=== PATIENT | female | born 1980 | race Two or more races ===

== ENCOUNTER → 2024-05-16 | Outpatient (CLI) | payer OTHER, SELFPAY ==
--- NOTE | 2024-05-16 15:17 | XR_ITS ---
Examination: Wrist, left 3 views Technique: Wrist AP, oblique, lateral 3 views Date and time of exam: May 16, 2024 1520 hours INDICATIONS: Injury to the wrist today, wrist pain FINDINGS: No acute fracture No dislocation No foreign body IMPRESSION: No acute fracture
== END | disposition home or self-care (01) ==
PROVIDERS: PCP Family Medicine; Referring Provider Family Medicine; Visit Provider Family Medicine
DX: S69.92XA Unspecified injury of left wrist, hand and finger(s), initial encounter (principal); X58.XXXA Exposure to other specified factors, initial encounter
CPT/HCPCS: 73110

== ENCOUNTER 2024-11-01 20:18 | Emergency (ER) | payer OTHER, SELFPAY ==
[2024-11-01 20:20] VITALS: BMI 42.9
[2024-11-01 21:04] VITALS: BP 168/106; PULSE 94; RESP 18; TEMP 36.8; O2SAT 97
--- NOTE | 2024-11-01 21:05 | PD.EDABDPN ---
ED Abdominal Pain RME/HPI General Chief Complaint: Back Pain/Injury Stated complaint: LEFT FLANK PAIN, NUMBNESS R. EYEBROW Time seen by provider: 11/01/24 21:05 Arrival date/time: 11/01/24 20:18 RME / HPI RME / HPI narrative: This section includes all my notes and documentations, including HPI, PE, and ED course. Paulino Elliott MD HPI: 44 y/o female with Hx of GERD, HTN, and Ulcer presents to ED c/o left flank pain and right-facial numbness and headache x few days. Patient states she has been sick over the last 3 to 4 days with flu-like symptoms. No speech or visual impairment. No loss of power in the arms or legs. No chest pain. No other complaints. ROS: All negative except as documented in HPI. Physical Exam: General: Alert and oriented. Appears uncomfortable. Eyes: Conjunctivae and lids clear. EOMI. PERRL. ENT: No nasal congestion. Pharynx normal. Tympanic membrane normal bilaterally. Neck: Supple. No carotid bruit. No JVD. Heart: RRR. Lungs: No respiratory distress. Good air movement. No rhonchi, wheezing, rales. Abdomen: Soft and nontender. Normal bowel sounds. No distension. No rebound or guarding. Back: Equivocal left CVA tenderness. Skin: Warm and dry. Neuro: Alert and oriented X 3. Cranial Nerves II-XII grossly intact. No peripheral motor deficits. I reviewed all diagnostic test results. My interpretation of the chest x-ray is NAD. My review of the Head CT report is NAD. My review of the Abdomen CT report is NAD. Blood tests unremarkable. UA showed positive leukocyte esterase, 9 RBC, 27 WBC. COVID/influenza negative. At this point, diagnoses include UTI, early pyelonephritis. Treatment here included Rocephin, Tylenol w/ Codeine, Zofran. Significant improvement noted. Recommend outpatient treatment. Based on my best medical judgment, made decision no further evaluation or treatment indicated at this time. Patient understands and agrees to the discharge instructions customized and printed, see below. Discharge instructions from Dr. Elliott: 1. After evaluation, you have UTI and early kidney infection. 2. Take cefdinir to kill the germs causing the infection.? Increase oral fluid to flush it out.? Maintain clear urine.? If dark or yellow, increase oral fluid. 3. Zofran for nausea/vomiting.? Toradol and Tylenol with codeine for pain. 4. See a private doctor on 11/05/2024 for recheck.? Ask to check the final urine culture results from today to make sure cefdinir doesn't need to be changed due to resistance. Ask to review all test results and official radiology reports, to make sure you receive all necessary follow-ups and monitoring. 5. Seek immediate medical care with worsening, fever, or with any concerns. Paulino Elliott MD Related Data Home Medications ?Medication ?Instructions ?Recorded ?Confirmed losartan 50 mg tablet 50 mg PO DAILY 07/22/21 03/20/24 metformin 1,000 mg tablet,extended 1,000 mg PO BID 03/20/24 03/20/24 release 24hr (osmotic) Previous Rx's ?Medication ?Instructions ?Recorded doxycycline hyclate 100 mg tablet 100 mg PO BID #28 tabs 03/22/24 hydrocodone 5 mg-acetaminophen 325 1 tab PO BID PRN pain #10 tabs 03/22/24 mg tablet acetaminophen 300 mg-codeine 30 mg 2 tab PO Q8H PRN pain #20 tabs 11/02/24 tablet cefdinir 300 mg capsule 300 mg PO BID #14 caps 11/02/24 ketorolac 10 mg tablet 10 mg PO Q8H PRN pain 5 days #10 11/02/24 tabs ondansetron 4 mg disintegrating 4 mg PO TID PRN nausea and 11/02/24 tablet vomiting 30 days #10 tabs Allergies Allergy/AdvReac Type Severity Reaction Status Date / Time No Known Allergies Allergy Verified 11/01/24 20:19 Review of Systems Review of Systems Systems Reviewed: All systems reviewed, normal except as documented Past Medical History Past Medical History NEUROLOGIC: Positive Neurological Disorders and Migraine (Daily) CARDIAC: Positive Cardiac Disorders, Heart Murmur and Hypertension GASTROINTESTINAL: Positive Gastrointestinal Disorders, Ulcer, Hemorrhoids, Gastroesophageal Reflux Disease and Obesity REPRODUCTIVE: Positive Previous Pregnancies MUSCULOSKELETAL: Positive Musculoskeletal Disorders and Arthritis ENDOCRINE: Positive Endocrine Disorders OTHER HISTORY: Positive Chicken Pox Family History FAMILY HISTORY: Positive Family Cardiac Disorders and Family Surgery ED Exam Narrative Physical exam: Refer to HPI Course Course Course Narrative: CXR is ordered for determining the etiology of shortness of breath. Quality Measures none Orders Category Date Time Status Bedside COVID-19 Antigen Test NOW Care 11/01/24 21:07 Active Bedside Influenza A&B Antigen Test NOW Care 11/01/24 21:[address] abdomen pelvis wo con Stat Exams 11/01/24 21:[address] head/brain wo con Stat Exams 11/01/24 22:40 Completed XR chest 1V portable Stat Exams 11/01/24 21:07 Completed Amylase Stat Lab 11/01/24 21:30 Completed Bilirubin,Direct Stat Lab 11/01/24 21:30 Completed CBC Stat Lab 11/01/24 21:30 Completed CMP [Comprehensive Metabolic Panel] Stat Lab 11/01/24 21:30 Completed HCG Qualitative,Urine Stat Lab 11/01/24 22:43 Completed HCG,Qualitative Serum Stat Lab 11/01/24 21:30 Completed Lipase Stat Lab 11/01/24 21:30 Completed Magnesium Stat Lab 11/01/24 21:30 Completed UA, C/S IF [Urinalysis, C/S if Indicated] Stat Lab 11/01/24 22:43 Completed Urine Culture Stat Lab 11/01/24 22:43 Received ACETAMINOPHEN w/COD 300-30 [Tylenol w/Cod #3] Med 11/02/24 00:41 Discontinued 2 tab PO X1 ONE Ondansetron Odt [Zofran Odt] Med 11/02/24 00:41 Discontinued 4 mg PO X1 ONE cefTRIAXone/D5w 1gm IV premix [Rocephin/D5w 1gm IV Med 11/02/24 00:41 Active premix] 1 g in 50 ml IV X1 Vital Signs Vital signs: Vital Signs Temperature 98.3 F 11/01/24 21:04 Pulse Rate 94 11/01/24 21:04 Respiratory Rate 18 11/01/24 21:04 Blood Pressure 168/106 H 11/01/24 21:04 Pulse Oximetry (%) 97 11/01/24 21:04 Oxygen Delivery Method Room Air 11/01/24 21:04 Abdominal Pain MDM MDM Narrative MDM Narrative:: Scribe Attestation: ICorinna am scribing for and in the presence of Dr. Elliott. Provider Notation: Although this document has been carefully reviewed, there may still be some phonetic and other typographical errors.? These errors are purely grammatical due to imperfections in the software program and should not be construed in any way to? compromise the substance of the patient's medical care during this visit. 44 y/o female with Hx of GERD, HTN, and Ulcer presents to ED c/o left flank pain and right-facial numbness x approximately 12 hours. Patient states she has been sick over the last 3 to 4 days with flu-like symptoms. She has pain with inspiration. No other complaints. Patient data External records reviewed:: [facility] previous records (Reviewed prior ED records from 03/20/24. Patient was seen for Abscess of skin or subcutaneous tissue.) Clinical information provided by:: patient Social determinants that could affect healthcare access:: none Patient has the following chronic illnesses:: Migraine, Heart Murmur, Hypertension, Ulcer, Hemorrhoids, Gastroesophageal Reflux Disease, Obesity, Arthritis How is presenting disease/condition affected by chronic disease/condition?: exacerbated by Evaluation data The following diagnostics were reviewed and interpreted by me:: lab results and radiology exam(s) Lab and/or radiology exams considered but not ordered:: None Interpretation Summary: I reviewed all diagnostic test results. My interpretation of the chest x-ray is NAD. My review of the Head CT report is NAD. My review of the Abdomen CT report is NAD. Blood tests unremarkable. UA showed positive leukocyte esterase, 9 RBC, 27 WBC. COVID/influenza negative. Medications / Prescriptions Medications or Prescriptions considered but not ordered:: None Medication administrations:: Medication Administration History Ceftriaxone Sodium/Dextrose (Rocephin/D5w 1gm Iv Premix) 1 g in 50 mls @ 100 mls/hr IV X1 ONE Stop: 11/02/24 01:10 Discontinued Medications Acetaminophen/Codeine Phosphate (Acetaminophen W/Cod 300-30 Tablet) 2 tab PO X1 ONE Stop: 11/02/24 00:42 Ondansetron HCl (Ondansetron Odt 4 Mg Tabrap) 4 mg PO X1 ONE; Protocol Stop: 11/02/24 00:42 Rocephin, Tylenol w/ Codeine, Zofran. Consultations Consultation(s) initiated? (list below): No Diagnosis Differential diagnosis abdominal pain: abdominal pain, acute appendicitis, calculus of kidney, constipation, diverticulitis, endometriosis, gastroenteritis, pancreatitis and small bowel obstruction Most likely diagnosis given after review of the tests above:: UTI, early pyelonephritis Admission Indicated Admission indicated?: not indicated Explain why admission is indicated or not indicated:: With significant improvement, there was no indication for admission. Admission Request Was there a request for admission?: No Disposition Plan Disposition Plan: Discharge Discharge Attestation Discharge Attestation: The patient and all family members were given an opportunity to ask questions and understood the discharge instructions. Discharge instructions specifically effects, indications for sooner follow up or return to the emergency department, and the expected course of current diagnosis. Patient condition: Stable Discharge Plan Plan Patient Disposition: HOME (Self Care) Prescriptions/Referrals Prescriptions/Med Rec: New acetaminophen-codeine 300-30 mg tablet 2 tab PO Q8H MDD 6 PRN (Reason: pain) Qty: 20 0RF ketorolac 10 mg tablet 10 mg PO Q8H PRN (Reason: pain) 5 Days Qty: 10 0RF ondansetron 4 mg tablet,disintegrating 4 mg PO TID PRN (Reason: nausea and vomiting) 30 Days Qty: 10 0RF cefdinir 300 mg capsule 300 mg PO BID Qty: 14 0RF No Action losartan 50 mg tablet 50 mg PO DAILY Patient Comments: TAKE 1 TABLET BY MOUTH EVERY DAY IN THE MORNING metformin 1,000 mg Tablet Extended Release 24hr 1,000 mg PO BID doxycycline hyclate 100 mg tablet 100 mg PO BID Qty: 28 0RF hydrocodone-acetaminophen 5-325 mg tablet 1 tab PO BID MDD 2 pills daily PRN (Reason: pain) Qty: 10 0RF Referrals: Shai Romero[facility] [Primary Care Provider] - In 1 week Problem List Clinical Impression: UTI (urinary tract infection) Patient/Caregiver Discharge Instructions Discharge Activity: activity as tolerated Education Materials: ED CYSTITIS Female Adult Additional Instructions: Discharge instructions from Dr. Elliott: 1. After evaluation, you have UTI and early kidney infection. 2. Take cefdinir to kill the germs causing the infection.? Increase oral fluid to flush it out.? Maintain clear urine.? If dark or yellow, increase oral fluid. 3. Zofran for nausea/vomiting.? Toradol and Tylenol with codeine for pain. 4. See a private doctor on 11/05/2024 for recheck.? Ask to check the final urine culture results from today to make sure cefdinir doesn't need to be changed due to resistance. Ask to review all test results and official radiology reports, to make sure you receive all necessary follow-ups and monitoring. 5. Seek immediate medical care with worsening, fever, or with any concerns. Print Language: Vincentian Stand Alone Forms: [employer]bet Award Info., Patient Portal Info Letter
--- NOTE | 2024-11-01 21:07 | XR_ITS ---
Examination: CT abdomen and pelvis without contrast. Coronal 3-D reconstructions. Sagittal 2-D reconstructions. Date and time of exam:November 01, 2024 10:37 PM INDICATIONS: Onset flank pain today CTDI: vol (mGy): 22 DLP: (mGycm): 1330 Technique: Axial images of the abdomen have been obtained, 3 mm slice thickness Intravenous contrast material has not been administered. Low dose protocols were performed. One or more of the following dose reduction techniques were used; automated exposure control, adjustment of the mA and/or KV according to patient size, use of iterative reconstruction technique. Findings: Lesions No pancreatic or adrenal mass No renal or ureteral calculi, no hydronephrosis Aorta normal size No bowel obstruction Normal appendix No diverticulitis Multiple uterine fundal masses, intrauterine device satisfactory position No bladder mass or bladder calculi Grade 1 anterolisthesis of L4 on L5 IMPRESSION: No renal or ureteral calculi, no hydronephrosis Normal appendix Consider pelvic sonography to assess uterine masses
--- NOTE | 2024-11-01 21:07 | XR_ITS ---
Examination: PA chest single view TECHNIQUE: Upright PA chest single view Date and time: November 01, 2024 2118 hours INDICATIONS: Shortness of breath chest pain and back pain beginning 2 days ago. FINDINGS: Normal heart size. Lungs are clear. Osseous structures are intact IMPRESSION: No active disease
[2024-11-01 21:57] LABS: Basophils % (Auto) 0 % (0-2.5); Eosinophils # (Auto) 0.3 Thou/mm3 (0.0-0.5); Eosinophils % (Auto) 3 % (0-10); Hematocrit 35.7 % (36.0-46.0); Hemoglobin 12.5 g/dL (12.0-16.0); Immature Granulocytes % (Auto) 0 % (0-0); Immature Granulocytes Auto 0.02 Thou/mm3 (0.00-0.00); Lymphocytes # (Auto) 3.2 Thou/mm3 (1.0-4.8); Lymphocytes % (Auto) 40 % (10-50); Mean Corpuscular Hemoglobin 30.7 pg (25.0-35.0); Mean Corpuscular Volume 88 fL (80-100); Monocytes # (Auto) 0.4 Thou/mm3 (0.0-0.8); Monocytes % (Auto) 5 % (0-12); Neutrophils % (Auto) 51 % (37-80); Nucleated Red Blood Cell % 0 /100 WBC (0); Platelet Count 238 Thou/mm3 (140-440); RDW Standard Deviation 39.9 fL (36.4-46.3); Red Blood Count 4.07 Miln/mm3 (4.00-5.20); White Blood Count 7.9 Thou/mm3 (3.6-11.0)
[2024-11-01 22:02] LABS: HCG,Qualitative Serum Negative
[2024-11-01 22:13] LABS: Alanine Aminotransferase 41 U/L (10-49); Albumin, Serum 4.1 gm/dL (3.5-5.0); Albumin/Globulin Ratio 1.3 (1.2-2.2); Alkaline Phosphatase 105 U/L (46-116); Amylase 36 U/L (30-118); Anion Gap 12 (7-16); Aspartate Amino Transferase 39 U/L (0-34); BUN/Creatinine Ratio 17 Ratio (12-20); Bilirubin,Direct 0.1 mg/dL (0.0-0.3); Bilirubin,Total 0.4 mg/dL (0.3-1.2); Blood Urea Nitrogen 15 mg/dL (9-23); Calcium 8.5 mg/dL (8.3-10.6); Calcium (Corrected) 8.5 mg/dL (8.5-10.1); Carbon Dioxide 24.8 mMol/L (20.0-31.0); Chloride 104 mMol/L (98-107); Creatinine (Component) 0.9 mg/dL (0.6-1.3); Estimated Creatinine Clearance 97.4 mL/min (>60); Globulin 3.1 gm/dL (2.3-3.5); Glucose 204 mg/dL (74-106); Lipase 46 U/L (12-53); Magnesium 2.1 mg/dL (1.6-2.6); Osmolality,Calculated 288 (275-295); Potassium 3.9 mMol/L (3.4-5.1); Sodium 141 mMol/L (136-145); Total Protein 7.2 gm/dL (5.7-8.2); eGFR > 60 See Note
--- NOTE | 2024-11-01 22:40 | XR_ITS ---
Examination: CT brain head without contrast. 2-D sagittal coronal reconstructions Date and time of exam:November 01, 2024 10:55 PM INDICATIONS: Facial numbness and headaches today CTDI: vol (mGy):56 DLP: (mGycm):1077 Technique: Multiple CT axial sections of the brain have been obtained, 5 mm slice thickness. Contrast has not been administered. 2-D sagittal, coronal reconstructions have been obtained Low dose protocols were performed. One or more of the following dose reduction techniques were used; automated exposure control, adjustment of the mA and/or KV according to patient size, use of iterative reconstruction technique. Findings: No significant ventricular enlargement. Intra-axial or extra-axial hemorrhage density is not seen. No mass effect or midline shift Basal cisterns are not remarkable. Fourth ventricle is midline. Cranial vault intact. Acute sphenoid sinusitis Impression: Negative for acute hemorrhage, mass effect or midline shift. Advise clinical correlation and follow-up accordingly
[2024-11-01 22:54] LABS: Collection Type, Urine Clean Catch
[2024-11-01 23:10] LABS: HCG Qualitative,Urine Negative
[2024-11-01 23:14] LABS: Bilirubin,Urine Negative (Negative); Blood,Urine 1+ (Negative); Clarity,Urine Clear (Clear/Hazy); Color,Urine Yellow (Lt Yel-Yel); Glucose, Urine Trace (Negative); Ketones,Urine Negative (Negative); Leukocyte Esterase,Urine Positive (Negative); Nitrite,Urine Negative (Negative); PH,Urine 5.5 (5.0-7.0); Protein,Urine Trace (Neg - Trace); RBC,Urine 9 /hpf (0-3); Specific Gravity,Urine 1.033 (1.001-1.035); Squamous Epithelial Cell,Urine 9 /hpf (0-5); WBC,Urine 27 /hpf (0-5)
[2024-11-01 23:16] LABS: Culture Indicated,Urine Yes
[2024-11-02 00:54] VITALS: BP 144/88; PULSE 77; RESP 19; TEMP 36.9; O2SAT 98
[2024-11-02] MEDS: ACETAMINOPHEN w/COD 300-30 TABLET 2 TAB PO (00:59)
[2024-11-02] MEDS: cefTRIAXone 1,000 MG, LIDOCAINE 1% 20 ML 2.1 ML IM (00:59)
[2024-11-02] MEDS: ONDANSETRON ODT 4 MG TABRAP PO (00:59)
== END 2024-11-02 00:48 | disposition home or self-care (01) ==
PROVIDERS: Emergency Provider Emergency Medicine; PCP Family Medicine
DX: N39.0 Urinary tract infection, site not specified (principal); I10 Essential (primary) hypertension; K21.9 Gastro-esophageal reflux disease without esophagitis; R51.9 Headache, unspecified; R20.0 Anesthesia of skin
CPT/HCPCS: 36415; 70450; 71045; 74176; 80053; 81001; 81025; 82150; 82248; 83690; 83735; 84703; 85025; 87086; 87400; 87811; 96372; 99284; J0696; J3490; Q0162; A9270

== ENCOUNTER → 2024-11-20 | Outpatient (CLI) | payer OTHER, SELFPAY ==
[2024-11-20 09:39] LABS: Basophils % (Auto) 1 % (0-2.5); Eosinophils # (Auto) 0.3 Thou/mm3 (0.0-0.5); Eosinophils % (Auto) 4 % (0-10); Hematocrit 39.4 % (36.0-46.0); Hemoglobin 13.3 g/dL (12.0-16.0); Immature Granulocytes % (Auto) 0 % (0-0); Immature Granulocytes Auto 0.02 Thou/mm3 (0.00-0.00); Lymphocytes # (Auto) 2.2 Thou/mm3 (1.0-4.8); Lymphocytes % (Auto) 25 % (10-50); Mean Corpuscular HGB Conc 33.8 g/dl (31.0-37.0); Mean Corpuscular Hemoglobin 30.8 pg (25.0-35.0); Mean Corpuscular Volume 91 fL (80-100); Monocytes # (Auto) 0.5 Thou/mm3 (0.0-0.8); Monocytes % (Auto) 6 % (0-12); Neutrophils # (Auto) 5.6 Thou/mm3 (1.8-7.7); Neutrophils % (Auto) 65 % (37-80); Nucleated Red Blood Cell % 0 /100 WBC (0); Platelet Count 243 Thou/mm3 (140-440); RDW Standard Deviation 41.4 fL (36.4-46.3); Red Blood Count 4.32 Miln/mm3 (4.00-5.20); White Blood Count 8.7 Thou/mm3 (3.6-11.0)
[2024-11-20 09:47] LABS: Glucose Estimated Average 177 mg/dL (80-131); Hemoglobin A1C 7.8 % Hgb (4.8-6.0)
[2024-11-20 10:02] LABS: Collection Type, Urine Clean Catch
[2024-11-20 10:05] LABS: Folate 14.21 ng/mL (>5.38); Vitamin B12 466 pg/mL (211-911)
[2024-11-20 10:08] LABS: Alanine Aminotransferase 28 U/L (10-49); Albumin, Serum 4.3 gm/dL (3.5-5.0); Albumin/Globulin Ratio 1.4 (1.2-2.2); Alkaline Phosphatase 112 U/L (46-116); Anion Gap 9 (7-16); Aspartate Amino Transferase 27 U/L (0-34); BUN/Creatinine Ratio 13 Ratio (12-20); Bilirubin,Total 0.5 mg/dL (0.3-1.2); Blood Urea Nitrogen 12 mg/dL (9-23); Calcium 9.2 mg/dL (8.3-10.6); Calcium (Corrected) 9.2 mg/dL (8.5-10.1); Carbon Dioxide 23.4 mMol/L (20.0-31.0); Cardiac Risk Estimate 4.4 RATIO (3.7-5.6); Chloride 105 mMol/L (98-107); Cholesterol 158 mg/dL (132-200); Creatinine (Component) 0.9 mg/dL (0.6-1.3); Free T3 2.8 pg/mL (2.3-4.2); Free T4 (Free Thyroxine) 1.02 ng/dL (0.89-1.76); Globulin 3.1 gm/dL (2.3-3.5); Glucose 165 mg/dL (74-106); HDL Cholesterol 36 mg/dL (40-60); LDL Cholesterol,Calculated 83 mg/dL (0-130); Osmolality,Calculated 277 (275-295); Potassium 4.4 mMol/L (3.4-5.1); Sodium 137 mMol/L (136-145); Thyroid Stimulating Hormone 1.02 uIU/mL (0.55-4.78); Total Protein 7.4 gm/dL (5.7-8.2); Triglycerides 194 mg/dL (30-150); eGFR > 60 See Note
[2024-11-20 10:54] LABS: Bilirubin,Urine Negative (Negative); Blood,Urine Negative (Negative); Clarity,Urine Clear (Clear/Hazy); Color,Urine Lt-Yellow (Lt Yel-Yel); Culture Indicated,Urine Not Indicated; Glucose, Urine Negative (Negative); Hyaline Casts,Urine < 1 /hpf (0-1); Ketones,Urine Negative (Negative); Leukocyte Esterase,Urine Negative (Negative); Nitrite,Urine Negative (Negative); PH,Urine 6.5 (5.0-7.0); Protein,Urine Trace (Neg - Trace); RBC,Urine 3 /hpf (0-3); Specific Gravity,Urine 1.025 (1.001-1.035); Squamous Epithelial Cell,Urine 7 /hpf (0-5); Urobilinogen,Urine Negative mg/dL (0.0-1.0); WBC,Urine 2 /hpf (0-5)
== END | disposition home or self-care (01) ==
LOC: COPL 08:46
PROVIDERS: PCP Nurse Practitioner; Referring Provider Nurse Practitioner; Visit Provider Nurse Practitioner
DX: E78.5 Hyperlipidemia, unspecified (principal); E11.65 Type 2 diabetes mellitus with hyperglycemia; I10 Essential (primary) hypertension; R53.83 Other fatigue
CPT/HCPCS: 36415; 80053; 80061; 81001; 82306; 82607; 82746; 83036; 84439; 84443; 84481; 85025

== ENCOUNTER 2025-01-12 23:59 | Emergency (ER) | payer OTHER, SELFPAY ==
[2025-01-13 00:44] VITALS: BP 137/91; PULSE 93; RESP 20; TEMP 36.8; O2SAT 96; BMI 42.9
[2025-01-13 01:50] LABS: Lactate (Lactic Acid) 1.0 mMol/L (0.4-2.0)
[2025-01-13 01:51] LABS: Basophils # (Auto) 0.1 Thou/mm3 (0.0-0.2); Basophils % (Auto) 0 % (0-2.5); Eosinophils # (Auto) 0.2 Thou/mm3 (0.0-0.5); Eosinophils % (Auto) 1 % (0-10); Hematocrit 37.8 % (36.0-46.0); Hemoglobin 12.6 g/dL (12.0-16.0); Immature Granulocytes Auto 0.03 Thou/mm3 (0.00-0.00); Lymphocytes # (Auto) 3.5 Thou/mm3 (1.0-4.8); Lymphocytes % (Auto) 25 % (10-50); Mean Corpuscular HGB Conc 33.3 g/dl (31.0-37.0); Mean Corpuscular Hemoglobin 30.9 pg (25.0-35.0); Mean Corpuscular Volume 93 fL (80-100); Monocytes # (Auto) 0.8 Thou/mm3 (0.0-0.8); Monocytes % (Auto) 6 % (0-12); Neutrophils # (Auto) 9.3 Thou/mm3 (1.8-7.7); Neutrophils % (Auto) 67 % (37-80); Nucleated Red Blood Cell # 0.00 Thou/mm3 (0.00-0.00); Nucleated Red Blood Cell % 0 /100 WBC (0); Platelet Count 314 Thou/mm3 (140-440); RDW Standard Deviation 45.1 fL (36.4-46.3); Red Blood Count 4.08 Miln/mm3 (4.00-5.20); White Blood Count 13.9 Thou/mm3 (3.6-11.0)
--- NOTE | 2025-01-13 02:14 | PD.EDADULT ---
ED General RME/HPI General Chief complaint: Skin/Abscess/Foreign Body Stated complaint: POSSIBLE ABSCESS TO RIGHT BREAST Time Seen by Provider: 01/13/25 01:32 Arrival date/time: 01/12/25 23:59 RME / HPI RME / HPI narrative: 44-year-old female with past medical history of recurrent abscesses, DM2 and hypertension comes into the ER due to right breast pain, erythema, and abscess. Patient states that she had it last year says on her left flank which is required IV antibiotics and to be drained. She stated that she started having right breast tenderness and swelling for the past week, but no discharge. Patient also states that she has had tenderness on the left breast, but this is lesser than the right and she did have some discharge on the left nipple. She mentioned that she used to have piercings which she took off. She has not tried any outpatient antibiotics and states that yesterday she felt a little bit hot, but has not had any actual fevers measured by temperature or any chills. Otherwise denies having any chest pain, shortness of breath, nausea, vomiting, abdominal pain, changes in bowel movement, or burning sensation during urination. Admits smoking, admits drinking every other day, denies any illicit drugs. Related Data Home Medications ?Medication ?Instructions ?Recorded ?Confirmed losartan 50 mg tablet 50 mg PO DAILY 07/22/21 03/20/24 metformin 1,000 mg tablet,extended 1,000 mg PO BID 03/20/24 03/20/24 release 24hr (osmotic) Previous Rx's ?Medication ?Instructions ?Recorded doxycycline hyclate 100 mg tablet 100 mg PO BID #28 tabs 03/22/24 hydrocodone 5 mg-acetaminophen 325 1 tab PO BID PRN pain #10 tabs 03/22/24 mg tablet acetaminophen 300 mg-codeine 30 mg 2 tab PO Q8H PRN pain #20 tabs 11/02/24 tablet cefdinir 300 mg capsule 300 mg PO BID #14 caps 11/02/24 amoxicillin 875 mg-potassium 1 tab PO BID 7 days #14 tabs 01/13/25 clavulanate 125 mg tablet Allergies Allergy/AdvReac Type Severity Reaction Status Date / Time No Known Allergies Allergy Verified 11/01/24 20:19 Review of Systems Review of Systems Systems Reviewed: All systems reviewed, normal except as documented Past Medical History Past Medical History NEUROLOGIC: Positive Neurological Disorders and Migraine (Daily) CARDIAC: Positive Cardiac Disorders, Heart Murmur and Hypertension GASTROINTESTINAL: Positive Gastrointestinal Disorders, Ulcer, Hemorrhoids, Gastroesophageal Reflux Disease and Obesity REPRODUCTIVE: Positive Previous Pregnancies MUSCULOSKELETAL: Positive Musculoskeletal Disorders and Arthritis ENDOCRINE: Positive Endocrine Disorders OTHER HISTORY: Positive Chicken Pox Family History FAMILY HISTORY: Positive Family Cardiac Disorders and Family Surgery ED Exam Narrative Physical exam: Physical exam was conducted with jenny Weinstein CNA Gen: A&O X 3, NAD HEENT: NCAT, EOMI, Pupils reactive SANJAY, not icteric. External ears normal. No rhinorrhea. Moist mucous membranes. Neck: Supple, full range of motion, no observable masses, No meningeal sign. Breast: Right breast has periductal erythema, swelling, and nonfluctuating mass which is tender to palpation, but no nipple discharge or retraction. Left breast mildly tender to palpation on the areola area with small nonfluctuating mass and no nipple discharge or retraction. No swelling or erythema appreciated on the left breast sided. Lungs: No Respiratory distress, clear bilateral. CV: RRR, no murmurs. Abdomen: Soft, nondistended, No rebound tenderness. MSK: No joint swelling, no redness, peripheral pulses presents, lumbar with no edema. Skin: No rashes, petechiae, lesions.. Neuro: No focal neurological deficits appreciated, sensory and motor intact. Psych: Cooperative, appropriate mood and effect. Course Quality Measures none Orders Category Date Time Status CBC [CBC] Stat Lab 01/13/25 01:44 Completed CMP [Comprehensive Metabolic Panel] Stat Lab 01/13/25 01:44 Completed HCG Qualitative,Urine Stat Lab 01/13/25 03:41 Completed Lactic Acid [Lactate (Lactic Acid)] Stat Lab 01/13/25 01:44 Completed Procalcitonin Stat Lab 01/13/25 01:44 Completed UA [Urinalysis] Stat Lab 01/13/25 03:41 Completed Amoxicillin/Pot Clav 875 [Augmentin 875] Med 01/13/25 02:35 Discontinued 1 tab PO X1 ONE Ketorolac Inj [Toradol Inj] Med 01/13/25 02:23 Discontinued 30 mg IM X1 ONE Ketorolac Inj [Toradol Inj] Med 01/13/25 02:35 Pending 30 mg IM X1 ONE Vital Signs Vital signs: Vital Signs Temperature 98.3 F 01/13/25 00:44 Pulse Rate 93 01/13/25 00:44 Respiratory Rate 20 01/13/25 00:44 Blood Pressure 137/91 H 01/13/25 00:44 Pulse Oximetry (%) 96 01/13/25 00:44 Oxygen Delivery Method Room Air 01/13/25 00:44 Discharge Plan Plan Patient Disposition: HOME (Self Care) Prescriptions/Referrals Prescriptions/Med Rec: New amoxicillin-pot clavulanate 875-125 mg tablet 1 tab PO BID 7 Days Qty: 14 0RF No Action losartan 50 mg tablet 50 mg PO DAILY Patient Comments: TAKE 1 TABLET BY MOUTH EVERY DAY IN THE MORNING metformin 1,000 mg Tablet Extended Release 24hr 1,000 mg PO BID doxycycline hyclate 100 mg tablet 100 mg PO BID Qty: 28 0RF hydrocodone-acetaminophen 5-325 mg tablet 1 tab PO BID MDD 2 pills daily PRN (Reason: pain) Qty: 10 0RF acetaminophen-codeine 300-30 mg tablet 2 tab PO Q8H MDD 6 PRN (Reason: pain) Qty: 20 0RF cefdinir 300 mg capsule 300 mg PO BID Qty: 14 0RF Problem List Clinical Impression: Mastitis Patient/Caregiver Discharge Instructions Other Activity Instructions:: Follow-up primary care physician within 5 days for reevaluation of right mass You have been prescribed Augmentin twice a day for total of 7 days. Your first dose was given in the ER. Apply warm compresses to right breast to reduce inflammation and pain Come back to the ED if you develop fevers, discharge, worsening pain, worsening swelling, or any other worsening symptoms. Print Language: Slovak Stand Alone Forms: [employer]bet Award Info., Patient Portal Info Letter MDM Narrative MDM hospital course: Patient was seen and evaluated upon arrival to the room by myself. Diagnostic labs were ordered. Patient had a mild elevation of WBC at 13.9, but otherwise other inflammatory markers negative and lactic acid was negative as well. Patient does not have a fever at this time. Patient looks nontoxic even though there is erythema and swelling on the right breast periductal and is tender to palpation. At this time we will try oral antibiotics and discharge patient with a prescription for Augmentin. Patient agrees with plan. First dose of Augmentin given in the ER and will give Toradol 30 mg x 1 IM for pain. Case disclosed with Attending Dr. Dayana Pascal PGY2 Disclaimer: Even though this this note was dictated by speech recognition and even though it was carefully revised there may still be minor errors in dumbwaiter operator due to voice recognition software. Medication Administration(s) Medication Administration History Ketorolac Tromethamine (Ketorolac Inj 60 Mg/2 Ml Vial) 30 mg IM X1 ONE Stop: 01/13/25 02:36 Discontinued Medications Amoxicillin/Clavulanate Potassium (Amoxicillin/Pot Clav 875 Tablet) 1 tab PO X1 ONE Stop: 01/13/25 02:36 Ketorolac Tromethamine (Ketorolac Inj 60 Mg/2 Ml Vial) 30 mg IM X1 ONE Stop: 01/13/25 02:24 Last Admin: 01/13/25 02:38 Dose: Not Given Documented By: SF Non-Admin Reason: Cancelled by Provider
[2025-01-13 02:16] LABS: Alanine Aminotransferase 13 U/L (10-49); Albumin, Serum 4.4 gm/dL (3.5-5.0); Albumin/Globulin Ratio 1.3 (1.2-2.2); Alkaline Phosphatase 144 U/L (46-116); Anion Gap 10 (7-16); Aspartate Amino Transferase 15 U/L (0-34); BUN/Creatinine Ratio 17 Ratio (12-20); Bilirubin,Total 0.3 mg/dL (0.3-1.2); Blood Urea Nitrogen 17 mg/dL (9-23); Calcium 9.4 mg/dL (8.3-10.6); Calcium (Corrected) 9.4 mg/dL (8.5-10.1); Carbon Dioxide 25.0 mMol/L (20.0-31.0); Chloride 104 mMol/L (98-107); Creatinine (Component) 1.0 mg/dL (0.6-1.3); Estimated Creatinine Clearance 87.7 mL/min (>60); Globulin 3.3 gm/dL (2.3-3.5); Glucose 125 mg/dL (74-106); Osmolality,Calculated 280 (275-295); Potassium 4.1 mMol/L (3.4-5.1); Procalcitonin 0.04 ng/ml (0.0-0.49); Sodium 139 mMol/L (136-145); Total Protein 7.7 gm/dL (5.7-8.2); eGFR > 60 See Note
[2025-01-13 02:24] VITALS: BP 130/78; PULSE 93; RESP 18; TEMP 36.8; O2SAT 97
[2025-01-13 03:45] LABS: Collection Type, Urine Voided
[2025-01-13 03:56] LABS: Bilirubin,Urine Negative (Negative); Blood,Urine Negative (Negative); Calcium Oxalate Crystals,Urine 4+; Clarity,Urine Turbid (Clear/Hazy); Color,Urine Yellow (Lt Yel-Yel); Glucose, Urine Negative (Negative); HCG Qualitative,Urine Negative; Ketones,Urine Negative (Negative); Leukocyte Esterase,Urine Positive (Negative); Nitrite,Urine Negative (Negative); PH,Urine 6.0 (5.0-7.0); Protein,Urine 1+ (Neg - Trace); RBC,Urine 4 /hpf (0-3); Specific Gravity,Urine 1.041 (1.001-1.035); Squamous Epithelial Cell,Urine 2 /hpf (0-5); Urobilinogen,Urine 2.0 mg/dL (0.0-1.0); WBC,Urine 4 /hpf (0-5)
[2025-01-13] MEDS: KETOROLAC INJ 60 MG/2 ML VIAL 30 MG IM (04:16)
[2025-01-13] MEDS: AMOXICILLIN/POT CLAV 875 TABLET 1 TAB PO (04:17)
[2025-01-13 04:33] VITALS: PULSE 78; RESP 18; TEMP 36.7; O2SAT 99
== END 2025-01-13 04:33 | disposition home or self-care (01) ==
LOC: SERX 01-13 04:46
DX: N61.0 Mastitis without abscess (principal); E11.9 Type 2 diabetes mellitus without complications; I10 Essential (primary) hypertension; Z79.84 Long term (current) use of oral hypoglycemic drugs; Z79.899 Other long term (current) drug therapy
CPT/HCPCS: 36415; 80053; 80307; 81001; 81025; 83605; 84145; 85025; 96372; 99283; J1885; A9270

== ENCOUNTER 2025-04-20 15:16 | Emergency (ER) | payer OTHER, SELFPAY ==
[2025-04-20 15:17] VITALS: BMI 39.4
[2025-04-20 15:26] VITALS: BP 147/90; PULSE 90; RESP 20; TEMP 36.7; O2SAT 100
--- NOTE | 2025-04-20 15:32 | EDNOTE_ITS ---
ED Fall Injury RME/HPI General Chief Complaint: Fall Stated Complaint: fall HAVING RT RIB PAIN Time Seen by Provider: 04/20/25 15:33 Arrival date/time: 04/20/25 15:16 RME / HPI RME / HPI Narrative: See [facility] for Dr. Elliott's HPI documentation. Related Data Home Medications ?Medication ?Instructions ?Recorded ?Confirmed losartan 50 mg tablet 50 mg PO DAILY 07/22/2103/04 metformin 1,000 mg tablet,extended 1,000 mg PO BID 03/20/24 release 24hr (osmotic) Previous Rx's ?Medication ?Instructions ?Recorded doxycycline hyclate 100 mg tablet 100 mg PO BID #28 ta bs 03/22/24 hydrocodone 5 mg-acetaminophen 325 1 tab PO BID PRN pa in #10 tabs 03/22/24 mg tablet acetaminophen 300 mg-codeine 30 mg 2 tab PO Q8H PRN pa in #20 tabs 11/02/24 tablet cefdinir 300 mg capsule 300 mg PO BID #14 caps 11/02 acetaminophen 300 mg-codeine 30 mg 2 tab PO Q8H PRN pa in #20 tabs 04/20/25 tablet ibuprofen 800 mg tablet 800 mg PO Q8H PRN pain #30 t abs 04/20/25 lidocaine 5 % topical patch 2 patch topical QDAY PRN p ain #30 04/20/25 (Lidoderm) ea Allergies Allergy/AdvReac Type Severity Reaction Status Date / Time No Known Allergies Allergy Verified 04/20/25 15:19 Review of Systems Review of Systems Systems Reviewed: All systems reviewed, normal except as documented Past Medical History Past Medical History NEUROLOGIC: Positive Neurological Disorders and Migraine (Daily) CARDIAC: Positive Cardiac Disorders, Heart Murmur and Hypertension GASTROINTESTINAL: Positive Gastrointestinal Disorders, Ulcer, Hemorrhoids, Gastroesophageal Reflux Disease and Obesity REPRODUCTIVE: Positive Previous Pregnancies MUSCULOSKELETAL: Positive Musculoskeletal Disorders and Arthritis ENDOCRINE: Positive Endocrine Disorders OTHER HISTORY: Positive Chicken Pox Family History FAMILY HISTORY: Positive Family Cardiac Disorders and Family Surgery Surgical History SURGICAL: Negative Cardiac Surgery, Pacemaker or Abdominal Surgery Social History SMOKING STATUS: Current some day smoker SECOND HAND EXPOSURE: No SUBSTANCE USE: does not use ED Exam Narrative Physical exam: See [facility] for Dr. Elliott's physical exam documentation. Course Quality Measures none Orders Category Date Time Status XR ribs RT min 3V w CXR1V Stat Exams 04/20/25 15:33 Completed HYDROmorphone INJ [Dilaudid Inj] Med 04/20/25 15:33 Discontinued 1 mg IM X1 ONE Ibuprofen Tab [Motrin Tab] Med 04/20/25 15:33 Discontinued 800 mg PO X1 ONE Lidocaine 5% Patch Med 04/20/25 16:15 Discontinued 1 patch TOP X1 ONE Lidocaine 5% Patch Med 04/20/25 15:33 Discontinued 2 patch TOP X1 ONE Ondansetron Odt [Zofran Odt] Med 04/20/25 15:33 Discontinued 4 mg PO X1 ONE Vital Signs Vital signs: Vital Signs Temperature 98.1 F 04/20/25 15:26 Pulse Rate 90 04/20/25 15:26 Respiratory Rate 20 04/20/25 15:26 Blood Pressure 147/90 H 04/20/25 15:26 Pulse Oximetry (%) 100 04/20/25 15:26 Oxygen Delivery Method Room Air 04/20/25 15:26 Pulse ox is 100% on room air which is adequate. Fall [facility] Narrative [facility] Narrative:: This section includes all my notes and documentations, including HPI, PE, and ED course. Paulino Elliott MD HPI: 44-year-old female here to be evaluated after falling inside her home 3 days ago, on 04/17/2025. Landed on her right rib cage, reports severe pain. No head injury. No headache or dizziness. No neck pain or back pain. No other complaints. ROS: All negative except as documented in HPI. Physical Exam: General:? Alert and oriented.? Severe pain. Eyes:? Conjunctivae and lids clear.? EOMI.? PERRL. ENT:? No signs of head trauma. Neck:? Supple.? No tenderness. Heart:? RRR. Lungs:? No respiratory distress.? Good air movement.? No rhonchi, wheezing, rales.? Chest: Severe tenderness with palpation of right rib cage, difficult to localize. Abdomen:? Soft and nontender.? Normal bowel sounds.? No distension.? No rebound or guarding.? Back:? No tenderness.? Skin:? Warm and dry.? Neuro:? Alert and oriented X 3.? Cranial Nerves II-XII grossly intact.? No peripheral motor deficits. Musculoskeletal:? All major joints and bones are not tender with no limited ROM. I reviewed all diagnostic test results: My interpretation of the Ribs x-ray is: No acute findings At this point, diagnoses include: Contusion of ribs on the right side Treatment here included: Ibuprofen 800 mg PO Lidocaine patches Significant improvement noted. Recommended supportive care. Based on my best medical judgment, made decision no further evaluation or treatment indicated at this time. Patient understands and agrees to the discharge instructions customized and printed, see below. Discharge instructions from Dr. Elliott: -- There is no broken rib(s). But severe rib contusions can be extremely painful and take a month to heal. -- Try to slowly resume your normal activity despite the pain. Prolonged inactivity is terrible for your body. -- Apply heat throughout the day as much as possible to help promote blood flow needed for healing. -- Ibuprofen and Tylenol with codeine and Lidocaine patches as needed. Again, you are going to have significant pain for a very long time. -- Try propping herself up on pillows. -- Despite the pain, take at least two very deep breaths every hour you are awake.? To keep your lungs inflated. -- See your private doctor on 04/22/25 for recheck.?? Ask for help until you are completely better.? You will need more pain management. -- Seek immediate medical care with intolerable pain, fever, shortness of breath (this is different from pain with breathing), persistent abdominal pain, or with any concerns. Paulino Elliott MD Patient data External records reviewed:: [facility] previous records Clinical information provided by:: patient Social determinants that could affect healthcare access:: none Patient has the following chronic illnesses:: Diabetes Hypertension How is presenting disease/condition affected by chronic disease/condition?: uneffected by Evaluation data The following diagnostics were reviewed and interpreted by me:: radiology exam(s) Lab and/or radiology exams considered but not ordered:: None Interpretation Summary: I reviewed all diagnostic test results: My interpretation of the Ribs x-ray is: No acute findings Medications / Prescriptions Medications or Prescriptions considered but not ordered:: None Medication administrations:: Medication Administration History Discontinued Medications Hydromorphone HCl (Hydromorphone Inj 2 Mg/Ml Vial) 1 mg IM X1 ONE Stop: 04/20/25 15:34 Last Admin: 04/20/25 16:13 Dose: Not Given Documented By: EDSON Non-Admin Reason: Patient Refused Ibuprofen (Ibuprofen Tab 400 Mg Tablet) 800 mg PO X1 ONE Stop: 04/20/25 15:34 Last Admin: 04/20/25 16:16 Dose: 800 mg Documented By: EDSON Lidocaine (Lidocaine 5% 1 Patch) 2 patch TOP X1 ONE Stop: 04/20/25 15:34 Last Admin: 04/20/25 16:17 Dose: Not Given Documented By: EDSON Non-Admin Reason: Duplicate Medication on eMAR Lidocaine (Lidocaine 5% 1 Patch) 1 patch TOP X1 ONE Stop: 04/20/25 16:16 Last Admin: 04/20/25 16:17 Dose: 1 patch Documented By: EDSON Ondansetron HCl (Ondansetron Odt 4 Mg Tabrap) 4 mg PO X1 ONE; Protocol Stop: 04/20/25 15:34 Last Admin: 04/20/25 16:14 Dose: Not Given Documented By: EDSON Non-Admin Reason: Patient Refused Treatment here included: Ibuprofen 800 mg PO Topical Lidocaine patches Consultations Consultation(s) initiated? (list below): No Diagnosis Fall Differential Diagnosis: syncope and other (Hip fracture, hip dislocation ) Most likely diagnosis given after review of the tests above:: Contusion of rib on right side Admission Indicated Admission indicated?: not indicated Explain why admission is indicated or not indicated:: With no condition needing emergent intervention, there was no indication for admission. Admission Request Was there a request for admission?: No Disposition Plan Disposition Plan: Discharge Discharge Attestation Discharge Attestation: The patient and all family members were given an opportunity to ask questions and understood the discharge instructions. Discharge instructions specifically effects, indications for sooner follow up or return to the emergency department, and the expected course of current diagnosis. Patient condition: Stable Discharge Plan Plan Patient Disposition: HOME (Self Care) Prescriptions/Referrals Prescriptions/Med Rec: New ibuprofen 800 mg tablet 800 mg PO Q8H PRN (Reason: pain) Qty: 30 0RF acetaminophen-codeine 300-30 mg tablet 2 tab PO Q8H MDD 6 PRN (Reason: pain) Qty: 20 0RF lidocaine [Lidoderm] 5 % adhesive patch,medicated 2 patch topical QDAY PRN (Reason: pain) Qty: 30 0RF Rx Instructions: leave on most painful area for up to 12 hrs No Action losartan 50 mg tablet 50 mg PO DAILY Patient Comments: TAKE 1 TABLET BY MOUTH EVERY DAY IN THE MORNING metformin 1,000 mg Tablet Extended Release 24hr 1,000 mg PO BID doxycycline hyclate 100 mg tablet 100 mg PO BID Qty: 28 0RF hydrocodone-acetaminophen 5-325 mg tablet 1 tab PO BID MDD 2 pills daily PRN (Reason: pain) Qty: 10 0RF acetaminophen-codeine 300-30 mg tablet 2 tab PO Q8H MDD 6 PRN (Reason: pain) Qty: 20 0RF cefdinir 300 mg capsule 300 mg PO BID Qty: 14 0RF Problem List Clinical Impression: Contusion of rib on right side Patient/Caregiver Discharge Instructions Discharge Activity: activity as tolerated Education Materials: ED Contusion, Rib Additional Instructions: Discharge instructions from Dr. Elliott: -- There is no broken rib(s). But severe rib contusions can be extremely painful and take a month to heal. -- Try to slowly resume your normal activity despite the pain. Prolonged inactivity is terrible for your body. -- Apply heat throughout the day as much as possible to help promote blood flow needed for healing. -- Ibuprofen and Tylenol with codeine and Lidocaine patches as needed. Again, you are going to have significant pain for a very long time. -- Try propping herself up on pillows. -- Despite the pain, take at least two very deep breaths every hour you are awake.? To keep your lungs inflated. -- See your private doctor on for recheck.?? Ask for help until you are completely better.? You will need more pain management. -- Seek immediate medical care with intolerable pain, fever, shortness of breath (this is different from pain with breathing), persistent abdominal pain, or with any concerns. Print Language: American Stand Alone Forms: [employer] Award Info., Patient Portal Info Letter
--- NOTE | 2025-04-20 15:33 | XR_ITS ---
Examination: Ribs, right, with PA chest, 5 views Technique: Chest PA, RIBS AP, RPO, LPO, AP coned lower ribs 5 views Exam date and time: April 20, 2025, 1552 hours INDICATIONS: Patient fell 3 days ago with injury to the right chest, right rib pain. Findings: Normal heart size No pneumothorax Moderate osteopenia No acute rib fractures IMPRESSION: No pneumothorax pulmonary contusion or hemothorax No acute rib fractures
[2025-04-20] MEDS: IBUPROFEN TAB 400 MG TABLET 800 MG PO (16:16)
[2025-04-20] MEDS: LIDOCAINE 5% 1 PATCH TOP (16:17)
[2025-04-20 16:50] VITALS: BP 168/90; PULSE 80; RESP 17; TEMP 36.7; O2SAT 95
== END 2025-04-20 17:27 | disposition home or self-care (01) ==
PROVIDERS: Emergency Provider Emergency Medicine; PCP Family Medicine
DX: S20.211A Contusion of right front wall of thorax, initial encounter (principal); W19.XXXA Unspecified fall, initial encounter
CPT/HCPCS: 71101; 99283; J3490; A9270